=== PATIENT | female | born 1970 | race Caucasian/White ===

== ENCOUNTER 2024-12-04 16:29 | Outpatient (OUT) | payer OTHER, SELFPAY ==
--- OUTSIDE RECORDS SUMMARY | 2024-12-04 16:37 | XMS_ITS | Encounter Summary ---
Author Organization [facility] Address [address] [place] [address] Care Team Providers Care Go Go Dancer Name Role Phone Nash Couch MD Primary Care Provider [phone] Keisha Villa ACCESS COORDINATOR Unavailable [phone] Keisha Villa ACCESS COORDINATOR Unavailable [phone] Encounter Details Date Type Department Care Team (Late st Contact Info) Description 11/15/2023 Orders Only [facility] [address] [place] [phone] Keisha Villa NP [address] [place] [address] Social History Tobacco Use Types Packs/Day Years Used Date Smoking Tobacco: Never Smokeless Tobacco: Never Alcohol Use Standard Drinks/Week Comments Never 0 (1 standard drink = 0.6 oz pure alcohol) caffine: 1/2 (150mg) energy drink (bang) daily [id number] Health Literacy Answer Date Recor ded How often do you need to hav e someone help you when you read instructions, pamphlets, or other written material from your doctor or pharmacy? Never 10/25/2023 Social Connection and Isolat ion Panel [NHANES] Answer Date Recorded In a typical week, how many times do you talk on the phone with family, friends, or neighbors? More than three times a week 10/25/2023 How often do you get togethe r with friends or relatives? More than three times a week 10/25/2023 How often do you attend chur ch or latter-day services? More than 4 times per year 10/25/2023 Do you belong to any clubs o r organizations such as yazidi groups, unions, fraternal or athletic groups, or school groups? Yes 10/25/2023 How often do you attend meet ings of the clubs or organizations you belong to? More than 4 times per year 10/25/2023 Are you , , di vorced, , never , or living with a partner? 10/25/2023 AUDIT-C Answer Date Recorded Q1: How often do you have a drink containing alcohol? Never 10/25/2023 Q2: How many drinks containi ng alcohol do you have on a typical day when you are drinking? Patient does not drink Q3: How often do you have si x or more drinks on one occasion? Never 10/25/2023 Overall Financial Resource Strain (CARDIA) Answe r Date Recorded How hard is it for you to pa y for the very basics like food, housing, medical care, and heating? Not hard at all 10/25/2023 PHQ-2 Answer Date Recorded Patient Health Questionnaire-2 Score 0 11/01/2023 [facility] - Occupational Stress Questionnaire Answer Date Recorded Do you feel stress - tense, restless, nervous, or anxious, or unable to sleep at night because your mind is troubled all the time - these days? Not at all 10/25/2023 Exercise Vital Sign Answer Date Recorde d On average, how many days pe r week do you engage in moderate to strenuous exercise (like a brisk walk)? 0 days 10/25/2023 On average, how many minutes do you engage in exercise at this level? 0 min 10/25/2023 Hunger Vital Sign Answer Date Recorded Within the past 12 months, y ou worried that your food would run out before you got the money to buy more. Never true 10/25/19 24 Within the past 12 months, t he food you bought just didn't last and you didn't have money to get more. Never true 10/25/2023 PRAP[facility] - Transportation Answer Date Re corded In the past 12 months, has l ack of transportation kept you from medical appointments or from getting medications? No 10/01 In the past 12 months, has l ack of transportation kept you from meetings, work, or from getting things needed for daily living? No 10/25/2023 Housing Stability Vital Sign Answer Real e Recorded In the last 12 months, was t here a time when you were not able to pay the mortgage or rent on time? No 10/25/2023 In the past 12 months, how m any times have you moved where you were living? 0 10/25/2023 At any time in the past 12 m [facility], were you homeless or living in a jail (including now)? No 10/25/2023 Comments Unknown Sex and Gender Information Value Date Recorded Sex Assigned at Female 10/25/2023 3:12 PM EDT Legal Sex Female 7:12 PM EDT Gender Identity Female 10/25/2023 3:12 PM EDT Sexual Orientation Not on file documented as of this encounter Plan of Treatment Upcoming Encounters Date Type Department Care Team (Late Contact Info) Description 11/18/2025 5:00 PM EDT Office Visit [facility] [address] [place] [address] Keisha Villa NP [address] [place] [phone] documented as of this encounter Procedures Procedure Name Priority Date/Time Associated Diagnosis Comments DEXA BONE DENSITY Routine 11/15/2023 3:50 PM EDT documented in this encounter Results * DEXA bone density (11/15/2023 3:50 PM EDT) Anatomical Region Laterality Modality Body Radiographic Lisandra ging us Keisha Villa NP IMG DXA PROCEDURES Final Result documented in this encounter Visit Diagnoses Not on filedocumented in this encounter Care Teams Go Go Dancer Relationship Specialty Start Date End Date Nash Couch MD [address] [place] [phone] PCP - General Family Medicine 10/26/23 Keisha Villa NP [address] [place] [address] PCP - [place] [facility] 01/01/2405/01 Keisha Villa NP [address] [place] [address] Nurse Practitioner Family Medicine 10/26/23 documented as of this encounter
--- OUTSIDE RECORDS SUMMARY | 2024-12-04 16:37 | XMS_ITS | Encounter Summary ---
Author Organization [facility] Address [address] [place] [address] Care Team Providers Care Glass Cut Off Tender Name Role Phone Nash Couch MD Primary Care Provider [phone] Keisha Villa SCARF GLUER Unavailable [phone] Keisha Villa SCARF GLUER Unavailable [phone] Encounter Details Date Type Department Care Team (Late st Contact Info) Description 11/14/2023 Orders Only [facility] [address] [place] [phone] Keisha Villa NP [address] [place] [address] Social History Tobacco Use Types Packs/Day Years [...] often do you attend chur ch or confucianist services? More than 4 times per year 10/25/2023 Do you belong to any clubs o r organizations such as hinduism groups, unions, fraternal or athletic groups, or [...] Recorded Patient Health Questionnaire-2 Score 0 11/01/2023 [facility] - Occupational Stress Questionnaire Answer Date [...] any time in the past 12 m [facility], were you homeless or living in a fpc (including now)? No 10/25/2023 Comments Unknown Sex [...] EDT Office Visit [facility] [address] [place] [address] Keisha Villa NP [address] [place] [phone] documented as of this encounter Procedures Procedure Name Priority Date/Time Associated Diagnosis Comments MAMMOGRAM, BILATERAL, SCREEN:* Routine 11/14/2023 11:44 AM EDT documented in this encounter Results * MAMMOGRAM, BILATERAL, SCREEN:* (11/14/2023 11:44 AM EDT) Anatomical Region Laterality Modality Radiographic Lisandra ging us Keisha Villa NP IMG XR PROCEDURES Final Result documented in this encounter Visit Diagnoses Not on filedocumented in this encounter Care Teams Glass Cut Off Tender Relationship Specialty Start Date End Date Nash Couch MD [address] [place] [address] PCP - General Family Medicine 10/26/23 Keisha Villa NP [address] [place] [address] PCP - [facility] 01/01/2405/01 Keisha Villa NP [address] [place] [address] Nurse Practitioner Family Medicine 10/26/23 documented as of this encounter
--- OUTSIDE RECORDS SUMMARY | 2024-12-04 16:37 | XMS_ITS | Clinical Summary ---
Author Organization [facility] Address [id number] [address] [place] [address] Care Team Providers Care Surveillance System Monitor Name Role Phone Nash Couch MD Primary Care Provider [phone] Allergies Active Allergy Reactions Criticality Noted Date Comments Penicillins Hives Low 01/29/2021 Medications calcium carbonate-vitam in D3 (OSCAL 500 + D) 500 mg(1,250mg) -200 units per tablet Take 1 tablet by mouth in the morning and 1 tablet in the evening. Take with meals. Active magnesium citrate 100 mg tablet Take 4 tablets by mouth. Active alendronate (FOSAMAX) 70 mg tablet TAKE 1 TABLET BY MOUTH ONCE A WEEK. TAKE WITH WATER 30 MINUTES BEFORE FIRST FOOD OR DRINK OR MED OF THE DAY. MUST REMAIN UPRIGHT FOR 30 MINUTES AFTER TAKING 2 Active clobetasoL (TEMOVATE) 0.05 % creamIndication s:Lichen sclerosus Apply 1 application topically in the morning and 1 application before bedtime. 30 g 2 Active estradioL (ESTRACE) 0.01 % (0.1 mg/gram) vaginal creamIndication s:Atrophic vaginitis INSERT 1 GRAM VAGINALLY IN THE MORNING 127.5 g 4 Active Family History Medical History Relation Name Comments Cancer Father Esophageal and neck COPD Maternal Grandfather Heart attack Maternal Grandfather Heart failure Maternal Grandfather Lung cancer Maternal Grandmother COPD Mother Diabetes Mother Heart failure Mother Kidney failure Mother Heart attack Paternal Grandfather COPD Paternal Grandmother Dementia Paternal Grandmother Breast cancer Neg Hx Relation Name Status Comments Brother Alive Father Alive Maternal Grandfather Maternal Grandmother Mother Paternal Grandfather Paternal Grandmother Sister Alive Social History Tobacco Use Types Packs/Day Years Used Date Smoking Tobacco: Never Smokeless Tobacco: Never Tobacco Cessation:Counseling Given: Not Answered Alcohol Use Standard Drinks/Week Comments Never 0 (1 standard drink = 0.6 oz pur e alcohol) Childcare Answer Date Recorded Childcare Unknown 10/11/2018 Employment Answer Date Recorded Employment Unknown 10/11/2018 Purpose - Life Answer Date Recorded Purpose and direction in life Unknown Comments No Sex and Gender Information Value Date Recorded Sex Assigned at Female 07/29/2022 3:36 PM EDT Legal Sex Female 11:28 AM EDT Gender Identity Female 07/29/2022 3:36 PM EDT Sexual Orientation Straight 07/29/2022 3: 36 PM EDT Last Filed Vital Signs Vital Sign Reading Time Taken Comments Blood Pressure 126/78 05/24/2022 11:18 AM EST Pulse 90 01/29/2021 7:27 PM EDT Temperature 36.9 C (98.5 F) 01/29/2021 7:27 PM EDT Respiratory Rate 20 01/29/2021 7:27 PM EDT Oxygen Saturation 100% 01/29/2021 7:27 PM EDT Inhaled Oxygen Concentration - - Weight 70.3 kg (155 lb) 11/11/2023 3:00 PM EDT Height 154.9 cm (5' 1 ) 11/11/2023 3:00 PM EDT Body Mass Index 29.29 11/11/2023 3:00 PM EDT Plan of Treatment Health Maintenance Due Date Last Done Comments Depression Screening 1981 Tobacco Screening 1981 DTaP,Tdap and Td Vaccines (1 - Tdap) 1988 Pap Smear 1990 Zoster (Shingles) Vaccine (1 of 2) 2019 Adult BMI Screening 11/10/2024 11/11/2023 Influenza Vaccine 12/31/2024 04/29/2022, , 03/06/2020, Additional history exists Medical Devices Not on file Insurance [facility] [place] [id number] Care Teams Surveillance System Monitor Relationship Specialty Start Date End Date Nash Couch MD PCP - General 05/21/22
--- OUTSIDE RECORDS SUMMARY | 2024-12-04 16:37 | XMS_ITS | Encounter Summary ---
Author Organization [facility] Address [address] [place] [address] Care Team Providers Care Power Hammer Operator Name Role Phone Nash Couch MD Primary Care Provider [phone] Keisha Villa NP Unavailable [phone] Reason for Visit * Reason Comments Med Refill Encounter Details Date Type Department Care Team (Late st Contact Info) Description 11/24/2024 Refill [facility] [address] [place] [phone] Keisha Villa, LILLI [address] [place] [address] Other osteoporosis without current pathological fracture Social History Tobacco Use Types Packs/Day Years [...] often do you attend chur ch or caodaism services? More than 4 times per year 10/25/2023 Do you belong to any clubs o r organizations such as muslim groups, unions, fraternal or athletic groups, or [...] Recorded Patient Health Questionnaire-2 Score 0 11/01/2023 [facility] - Occupational Stress Questionnaire Answer Date Recorded [...] any time in the past 12 m [facility], were you homeless or living in a retirement (including now)? No 10/25/2023 Comments Unknown Sex and Gender Information Value Date Recorded Sex Assigned at Female 10/25/2023 3:12 PM EDT Legal Sex Female 7:12 PM EDT Gender Identity Female 10/25/2023 3:12 PM EDT Sexual Orientation Not on file documented as of this encounter Plan of Treatment Upcoming Encounters Date Type Department Care Team (Late st Contact Info) Description 11/18/2025 5:00 PM EDT Office Visit [facility] [address] [place] [place] [address] Keisha Villa NP [address] [place] [phone] documented as of this encounter Visit Diagnoses Diagnosis Other osteoporosis without current pathological fracture documented in this encounter Care Teams Power Hammer Operator Relationship Specialty Start Date End Date Nash Couch MD [address] [place] [address] PCP - General Family Medicine 10/26/23 Keisha Villa NP [address] [place] [phone] Nurse Practitioner Family Medicine 10/26/23 documented as of this encounter
--- NOTE | 2024-12-04 16:43 | MM_ITS ---
Patient Name: SUE MOYER MR#: [id number] : 1970 Exam Date: 12/04/2024 Ordering Doctor: ADAMA LEBLANC CNP RADIOLOGY REPORT PROCEDURE: MM TOMOSYNTHESIS SCREENING BI COMPARISON: MM TOMOSYNTHESIS SCREENING BI, 11/11/2023. MM TOMOSYNTHESIS SCREENING BI, 08/12/2022. MM TOMOSYNTHESIS SCREENING BI, 06/29/2021. INDICATIONS: Screening for malignant neoplasm Calculator Name NCI Breast Cancer Risk Assessment Tool 5 Year Breast Cancer Risk 1.10% Lifetime Breast Cancer Risk 7.40% Personal Breast Cancer No Personal Ovarian Cancer No Treatments None Family Cancers Grandmother-maternal with lung cancer at age 70. LOCATION: [facility] BREAST COMPOSITION: There are scattered areas of fibroglandular density. FINDINGS: DIAGNOSTIC CATEGORY 1--NEGATIVE. RIGHT BREAST: No significant suspicious finding. LEFT BREAST: No significant suspicious finding. RECOMMENDATIONS: ROUTINE MAMMOGRAM AND CLINICAL EVALUATION IN 12 MONTHS. PLEASE NOTE: A NORMAL MAMMOGRAM DOES NOT EXCLUDE THE POSSIBILITY OF BREAST CANCER. A CLINICALLY SUSPICIOUS PALPABLE LUMP SHOULD BE BIOPSIED. Dictated by: Jarret Ruiz DO on 12/05/2024 at 14:48 Approved by: Jarret Ruiz DO on 12/05/2024 at 15:19
== END 2024-12-04 16:30 | disposition home or self-care (01) ==
PROVIDERS: PCP Nurse Practitioner; Visit Provider Nurse Practitioner
DX: Z12.31 Encounter for screening mammogram for malignant neoplasm of breast (principal); Z80.1 Family history of malignant neoplasm of trachea, bronchus and lung
CPT/HCPCS: 77063; 77067

== ENCOUNTER 2025-01-05 10:17 | Outpatient (OUT) | payer OTHER, SELFPAY ==
--- OUTSIDE RECORDS SUMMARY | 2025-01-05 10:22 | XMS_ITS | Clinical Summary ---
Author Organization [facility] Address [address] [place] [address] Care Team Providers Care Ticket Counter Name Role Phone Nash Couch MD Primary Care Provider [phone] Keisha Villa NP Unavailable [phone] Allergies Active Allergy Reactions Criticality Noted Date Comments Penicillins Rash Low 05/30/2023 Medications Calcium Carb-Cholecalcife rol (Oyster Shell Calcium w/D) 500-5 MG-MCG tablet Take 1 tablet by mouth in the morning and 1 tablet in the evening. Take with meals. 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/12/2023 Assessment & Plan (11/13/2024 3:50 PM EDT): Check vit d Encounter for screening mamm ogram for malignant neoplasm of breast 11/01/2023 Wellness examination 11/01/2023 Assessment & Plan (11/13/2024 6:53 AM EDT): Reviewed Ht/Wt/BMI Recommend eye exam yearly Recommend dental exams twice a year Balance work/leisure activities Exercises is recommended most days of the week (appropriate as chronic conditions allow) Follow up yearly and prn Assessment & Plan (11/01/2023 2:34 PM EDT): Reviewed Ht/Wt/BMI Recommend eye exam yearly Recommend dental exams twice a year Balance work/leisure activities Exercises is recommended most days of the week (appropriate as chronic conditions allow) Follow up yearly and prn Other osteoporosis without current pathological fracture 05/30/2023 Assessment & Plan (11/13/2024 3:50 PM EDT): Cont fosamax, DEXA scan 11/22 Check labs Assessment & Plan (11/01/2023 2:34 PM EDT): Cont fosamax, check DEXA scan Check labs Encounters Date Type Department Care Team Description 12/05/2024 Results Follow-Up [facility] [address] [place] [address] Eva Dukes MA MM TOMOSYNTHESIS SCREENING BI 12/05/2024 Clinisync Result Encounter [facility] External Department Unsolicited Keisha Villa NP 11/24/2024 [facility] [address] [place] [address] Keisha Villa NP Other osteoporosis without current pathological fracture 11/13/2024 3:00 PM EDT [facility] [address] [place] [address] Keisha Villa NP Wellness examination (Primary Dx); Other osteoporosis without current pathological fracture ; Encounter for screening mammogram for malignant neoplasm of breast; Poisoning by vitamin D, accidental or unintentional, sequela; Colon cancer screening 11/07/2024 Travel from Last 3 Months Immunizations Immunization Administration Dates Next Due Hep A, Adult 06/04/2011 Influenza, injectable, quadrivalent, preservativ e free 03/06/2020 Influenza, seasonal, injectable, preservative fr ee 06/18/2024 Tdap 06/18/2024 Social History Tobacco Use Types Packs/Day Years [...] often do you attend chur ch or restorationist services? More than 4 times per year 10/25/2023 Do you belong to any clubs o r organizations such as sikh groups, unions, fraternal or athletic groups, or [...] Recorded Patient Health Questionnaire-2 Score 0 11/01/2023 [facility] of Occupat ional Health - Occupational Stress Questionnaire Answer Date Recorded [...] any time in the past 12 m [facility], were you homeless or living in a fpc (including now)? No 10/25/2023 Comments Unknown Sex and Gender Information Value Date Recorded Sex Assigned at Female 10/25/2023 3:12 PM EDT Legal Sex Female 7:12 PM EDT Gender Identity Female 10/25/2023 3:12 PM EDT Sexual Orientation Not on file Last Filed Vital Signs Vital Sign Reading Time Taken Comments Blood Pressure 112/80 11/13/2024 3:23 PM EDT Pulse 63 11/13/2024 3:23 PM EDT Temperature 36.6 C (97.8 F) 11/13/2024 3:23 PM EDT Respiratory Rate 18 11/13/2024 3:23 PM EDT Oxygen Saturation 99% 11/13/2024 3:23 PM EDT Inhaled Oxygen Concentration - - Weight 74.1 kg (163 lb 6.4 oz) 11/13/2024 3:23 P M EDT Height 154.9 cm (5' 1 ) 11/01/2023 2:03 PM EDT Body Mass Index 30.87 11/01/2023 2:03 PM EDT Plan of Treatment Health Maintenance Due Date Last Done Comments CT Colonography 1969 Colonoscopy 1969 FIT 1969 FOBT 1969 Sigmoidoscopy 1969 HPV/Cotest 1999 Cervical Cancer Screening 09/09/2025 Pap Smear 09/09/2025 09/09/2022 Mammogram 12/05/2025 12/05/2024, 10/30, 11/14/2023, Additional history exists Colorectal Cancer Screening 11/22/2027 FIT-DNA 11/22/2027 11/21/2024, 07/31/2021, 040 05/2021 Influenza Vaccine Discontinued 06/18/2024, 03/06/2020 Procedures Procedure Name Priority Date/Time Associated Diagnosis Comments MM TOMOSYNTHESIS SCREENING BI 12/05/2024 3:20 PM EDT LAB COLOGUARD COLON CANCER SCREEN Routine 11/21/2024 9:30 AM EDT Colon cancer screening from Last 3 Months Results * MM TOMOSYNTHESIS SCREENING BI (12/05/2024 3:20 PM EDT) Anatomical Region Laterality Modality Other 12/05/2024 3:20 PM EDT Narrative 12/05/2024 3:20 [place] [address] Mammography Report Signed Patient: SUE MOYER MR#: [id number] : 1970 Acct:[id number] Age/Sex: 54 / F ADM Date: 12/04/24 Loc: MAMMO Attending Dr: Keisha Villa NP Ordering Physician: Keisha Villa NP Results: Date of Service: 12/04/24 Follow Up: Procedure(s): MM tomosynthesis screening BI Accession Number(s): [id number] cc: Keisha Villa LOOM INSPECTOR Patient Name: SUE MOYER MR#: [id number] : 1970 Exam Date: 12/04/2024 Ordering Doctor: ADAMA VILLA CNP RADIOLOGY REPORT PROCEDURE: MM TOMOSYNTHESIS SCREENING BI COMPARISON: MM TOMOSYNTHESIS SCREENING BI, 11/11/2023. MM TOMOSYNTHESIS SCREENING BI, 08/12/2022. MM TOMOSYNTHESIS SCREENING BI, 06/29/2021. INDICATIONS: Screening for malignant neoplasm Calculator Name [facility] Breast Cancer Risk Assessment Tool 5 Year Breast Cancer Risk 1.10% Lifetime Breast Cancer Risk 7.40% Personal Breast Cancer No Personal Ovarian Cancer No Treatments None Family Cancers Grandmother-maternal with lung cancer at age 70. LOCATION: [facility] BREAST COMPOSITION: There are scattered areas of fibroglandular density. FINDINGS: DIAGNOSTIC CATEGORY 1--NEGATIVE. RIGHT BREAST: No significant suspicious finding. LEFT BREAST: No significant suspicious finding. RECOMMENDATIONS: ROUTINE MAMMOGRAM AND CLINICAL EVALUATION IN 12 MONTHS. PLEASE NOTE: A NORMAL MAMMOGRAM DOES NOT EXCLUDE THE POSSIBILITY OF BREAST CANCER. A CLINICALLY SUSPICIOUS PALPABLE LUMP SHOULD BE BIOPSIED. Dictated by: Jarret Ruiz DO on 12/05/2024 at 14:48 Approved by: Jarret Ruiz DO on 12/05/2024 at 15:19 Dictated By: Jarret Ruiz M.D. Signed By: 12/05/24 1520 DD/ 1520 TD/TT: Manager Resort: Procedure Note Radiology, Radiologist, MD - 12/05/2024 [place] [address] Mammography Report Signed Patient: SUE MOYER AMR#: [id number] : 1970Acct:[id number] Age/Sex: 54 / FADM Date: 12/04/24 Loc: MAMMO Attending Dr: Keisha Villa NP Ordering Physician: Keisha Villa NPResults: Date of Service: 12/04/24Follow Up: Procedure(s): MM tomosynthesis screening BI Accession Number(s): [id number] cc: Keisha Villa NP Patient Name: SUE MOYER MR#: [id number] : 1970 Exam Date: 12/04/2024 Ordering Doctor: ADAMA VILLA CNP RADIOLOGY REPORT PROCEDURE: MM TOMOSYNTHESIS SCREENING BI COMPARISON: MM TOMOSYNTHESIS SCREENING BI, 11/11/2023. MMTOMOSYNTHESIS SCREENING BI, 08/12/2022. MM TOMOSYNTHESIS SCREENING BI, 06/29/2021. INDICATIONS: Screening for malignant neoplasm Calculator Name [facility] Breast Cancer Risk Assessment Tool 5 Year Breast Cancer Risk 1.10% Lifetime Breast Cancer Risk 7.40% Personal Breast Cancer No Personal Ovarian Cancer No Treatments None Family Cancers Grandmother-maternal with lung cancer at age 70. LOCATION: [facility] BREAST COMPOSITION: There are scattered areas of fibroglandulardensity. FINDINGS: DIAGNOSTIC CATEGORY 1--NEGATIVE. RIGHT BREAST: No significant suspicious finding. LEFT BREAST: No significant suspicious finding. RECOMMENDATIONS: ROUTINE MAMMOGRAM AND CLINICAL EVALUATION IN 12 MONTHS. PLEASE NOTE: A NORMAL MAMMOGRAM DOES NOT EXCLUDE THE POSSIBILITY OFBREAST CANCER. A CLINICALLY SUSPICIOUS PALPABLE LUMP SHOULD BE BIOPSIED. Dictated by: Jarret Ruiz DO on 12/05/2024 at 14:48 Approved by: Jarret Ruiz DO on 12/05/2024 at 15:19 Dictated By: Jarret Ruiz M.D. Signed By:12/05/24 1520 DD/ 1520 TD/TT: Manager Resort: Keisha Villa NP [facility] Final Result * Cologuard?? colon cancer screening (11/21/2024 9:30 AM EDT) NONINV COLON CA DNA+OCC BLD SCRN STL-IMP Negative Negative 11/28/2024 5:50 AM EDT [facility] (CLIA #:[id number]) Comment: The Cologuard (TM) test was performed on this specimen. NEGATIVE TEST RESULT. A negative Cologuard result indicates a low likelihood that a colorectal cancer (CRC) or advanced adenoma (adenomatous polyps with more advanced pre-malignant features) is present. The chance that a person with a negative Cologuard test has a colorectal cancer is less than 1 in 1500 (negative predictive value >99.9%) or has an advanced adenoma is less than 5.3% (negative predictive value 94.7%). These data are based on a prospective cross-sectional study of 10,000 individuals at average risk for colorectal cancer who were screened with both Cologuard and colonoscopy. (Naya Almanza et al, N Engl J Med 2014;370(14):1286- 1297) The normal value (reference range) for this assay is negative. COLOGUARD RE-SCREENING RECOMMENDATION: Periodic colorectal cancer screening is an important part of preventive healthcare for asymptomatic individuals at average risk for colorectal cancer. Following a negative Cologuard result, the [place] Cancer Society and U.S. Multi-Society Task Force screening guidelines recommend a Cologuard re-screening interval of 3 years. References: [place] [employer] Guideline for Colorectal Cancer Screening: https://www.cancer.org/cancer/dqqjs-ceaweq-zpejrc/ixrfkggdx-hujnfitjl-rziukzd/ac s-rec ommendations.html.; Carlitos DK, Velia FREED, Evelyn VillaseñorK, Colorectal Cancer Screening: Recommendations for Physicians and Patients from the U.S. Multi-Society Task Force on Colorectal Cancer Screening , Am J Gastroenterology 2017; 112:5254-3596. TEST DESCRIPTION: Composite algorithmic analysis of stool DNA-biomarkers with hemoglobin immunoassay. Quantitative values of individual biomarkers are not reportable and are not associated with individual biomarker result reference ranges. Cologuard is intended for colorectal cancer screening of adults of either sex, 45 years or older, who are at average-risk for colorectal cancer (CRC). Cologuard has been approved for use by the U.S. FDA. The performance of Cologuard was established in a cross sectional study of average-risk adults aged 50-84. Cologuard performance in patients ages 45 to 49 years was estimated by sub-group analysis of near-age groups. Colonoscopies performed for a positive result may find as the most clinically significant lesion: colorectal cancer [4.0%], advanced adenoma (including sessile serrated polyps greater than or equal to 1cm diameter) [20%] or non- advanced adenoma [31%]; or no colorectal neoplasia [45%]. These estimates are derived from a prospective cross-sectional screening study of 10,000 individuals at average risk for colorectal cancer who were screened with both Cologuard and colonoscopy. (Naya Dunne al, N Engl J Med 2014;370(14):8126-4641.) Cologuard may produce a false negative or false positive result (no colorectal cancer or precancerous polyp present at colonoscopy follow up). A negative Cologuard test result does not guarantee the absence of CRC or advanced adenoma (pre-cancer). The current Cologuard screening interval is every 3 years. ([place] Cancer Society and U.S. Multi-Society Task Force). Cologuard performance data in a 10,000 patient pivotal study using colonoscopy as the reference method can be accessed at the following location: www.[employer].Music Connect/results. Additional description of the Cologuard test process, warnings and precautions can be found at www.[employer].Music Connect. Stool specimen (specimen) 11/21/2024 9:30 AM EDT 11/23/2024 7:38 AM EDT us Keisha Villa NP LAB MOLECULAR DIAGNOSTICS ORDER VICTORINO Final Result [facility] (CLIA #:[id number]) [address] [place] [address], [place] [phone] from Last 3 Months Insurance [employer] Care Teams Ticket Counter Relationship Specialty Start Date End Date Nash Couch MD PCP - General Family Medicine 10/26/23 Keisha Villa NP Nurse Practitioner Family Medicine 10/26/23
--- OUTSIDE RECORDS SUMMARY | 2025-01-05 10:22 | XMS_ITS | Encounter Summary ---
Author Organization [facility] Address [address] [place] [address] Care Team Providers Care Associate Chief Nurse Name Role Phone Nash Couch MD Primary Care Provider [phone] Keisha Villa SHOWROOM SALES ASSISTANT Unavailable [phone] Keisha Villa NP Unavailable [phone] Encounter Details Date Type Department Care Team (Late st Contact Info) Description 11/15/2023 Orders Only [facility] [address] [place] [address] Keisha Villa NP [address] [place] [address] Social History Tobacco Use Types Packs/Day Years [...] often do you attend chur ch or jehovah's witness services? More than 4 times per year 10/25/2023 Do you belong to any clubs o r organizations such as presybeterian groups, unions, fraternal or athletic groups, or [...] Recorded Patient Health Questionnaire-2 Score 0 11/01/2023 [facility] of Occupat ional [facility] - Occupational Stress Questionnaire Answer Date [...] any time in the past 12 m [place], were you homeless or living in a prison (including now)? No 10/25/2023 Comments Unknown Sex and Gender Information Value Date Recorded Sex Assigned at Female 10/25/2023 3:12 PM EDT Legal Sex Female 7:12 PM EDT Gender Identity Female 10/25/2023 3:12 PM EDT Sexual Orientation Not on file documented as of this encounter Plan of Treatment Not on file documented as of this encounter Procedures Procedure Name Priority Date/Time Associated Diagnosis Comments DEXA BONE DENSITY Routine 11/15/2023 3:50 PM EDT documented in this encounter Results * DEXA bone density (11/15/2023 3:50 PM EDT) Anatomical Region Laterality Modality Body Radiographic Lisandra ging Keisha Villa NP IMG DXA PROCEDURES Final Result documented in this encounter Visit Diagnoses Not on filedocumented in this encounter Care Teams Associate Chief Nurse Relationship Specialty Start Date End Date Nash Couch MD PCP - General Family Medicine 10/26/23 Keisha Villa NP [address] [place] [address] PCP - [place] 01/01/2405/01 Keisha Villa NP Nurse Practitioner Family Medicine 10/26/23 documented as of this encounter
--- OUTSIDE RECORDS SUMMARY | 2025-01-05 10:22 | XMS_ITS | Clinical Summary ---
Author Organization [employer] Address [id number] [address] [place] [address] Care Team Providers Care Assistant At Surgery Name Role Phone Nash Couch MD Primary Care Provider [phone] Allergies Active Allergy Reactions Criticality Noted Date [...] exists Medical Devices Not on file Insurance [facility] [place] [address] Care Teams Assistant At Surgery Relationship Specialty Start Date End Date Nash Couch MD PCP - General 05/21/22
--- OUTSIDE RECORDS SUMMARY | 2025-01-05 10:22 | XMS_ITS | Encounter Summary ---
Author Organization [facility] Address [address] [place] [address] Care Team Providers Care Dividing Machine Operator Name Role Phone Nash Couch MD Primary Care Provider [phone] Keisha Villa WASHATERIA ATTENDANT Unavailable [phone] Keisha Villa NP Unavailable [phone] Encounter Details Date Type Department Care Team (Late st Contact Info) Description 11/14/2023 Orders Only [facility] [address] [place] [address] Keisha Villa NP [address] [place] [address] Social History Tobacco Use Types Packs/Day Years [...] often do you attend chur ch or jew services? More than 4 times per year 10/25/2023 Do you belong to any clubs o r organizations such as latter-day groups, unions, fraternal or athletic groups, or [...] Recorded Patient Health Questionnaire-2 Score 0 11/01/2023 [facility] of Occupat ional [facility] - Occupational Stress Questionnaire Answer Date Recorded [...] were you homeless or living in a halfway (including now)? No 10/25/2023 Comments Unknown Sex [...] Anatomical Region Laterality Modality Radiographic Lisandra ging Keisha Villa NP IMG XR PROCEDURES Final Result documented in this encounter Visit Diagnoses Not on filedocumented in this encounter Care Teams Dividing Machine Operator Relationship Specialty Start Date End Date Nash Couch MD PCP - General Family Medicine 10/26/23 Keisha Villa NP [address] [place] [address] PCP - [place] [employer] 01/01/2405/01 Keisha Villa NP Nurse Practitioner Family Medicine 10/26/23 documented as of this encounter
[2025-01-05 10:45] LABS: Hematocrit 44.4 % (36.0-48.0); Hemoglobin 14.6 g/dL (12.0-16.0); Immature Granulocytes Abs Auto 0.02 10^3/uL (0.00-0.03); Immature Granulocytes Pct Auto 0.3 % (0.0-0.5); Lymphocytes Absolute Auto 1.5 10^3/uL (1.2-3.8); Mean Corpuscular HGB Conc 32.9 g/dL (29.9-35.2); Mean Corpuscular Hemoglobin 31.7 pg (26.7-34.0); Mean Corpuscular Volume 96.3 fL (81.0-99.0); Platelet Count 274 10^3/uL (150-450); Red Blood Count 4.61 10^6/uL (4.20-5.40); White Blood Count 6.1 10^3/uL (4.0-11.0)
[2025-01-05 10:46] LABS: Glucose Urine UA NEGATIVE (NEGATIVE)
[2025-01-05 11:01] LABS: Alanine Aminotransferase 24 U/L (14-59); Albumin Globulin Ratio 1.1; Albumin Level 4.2 g/dL (3.4-5.0); Alkaline Phosphatase 56 U/L (46-116); Anion Gap 12.4; Aspartate Amino Transferase 17 U/L (15-37); Blood Urea Nitrogen 22.0 mg/dL (7.0-18.0); Calcium 9.1 mg/dL (8.5-10.1); Carbon Dioxide 30.4 mmol/L (21.0-32.0); Chloride 102 mmol/L (98-107); Cholesterol 243 mg/dL (<=200); Estimated GFR (African America >60 (>=60 mL/min/1.73m^2); Estimated GFR (Non-African Ame >60 (>=60 mL/min/1.73m^2); Globulin 3.8 g/dL; Glucose 90 mg/dL (74-106); HDL Cholesterol 93 mg/dL (40-60); Potassium 3.8 mmol/L (3.5-5.1); Sodium 141 mmol/L (136-145); Total Protein 8.0 g/dL (6.4-8.2); Triglycerides 44 mg/dL (<=150); VLDL CHOLESTEROL 8.8 mg/dL
== END 2025-01-05 10:18 | disposition home or self-care (01) ==
LOC: LAB 10:20
PROVIDERS: PCP Nurse Practitioner; Visit Provider Nurse Practitioner
DX: Z00.00 Encounter for general adult medical examination without abnormal findings (principal); T45.2X1S Poisoning by vitamins, accidental (unintentional), sequela
CPT/HCPCS: 36415; 80053; 80061; 81003; 82306; 85025